=== PATIENT | female | born 1955 | race Asian ===

== ENCOUNTER 2018-05-27 09:07 | Outpatient (CLI) | payer OTHER | END 2018-05-27 20:13 | disposition home or self-care (01) | LOC: CT 09:07 | DX: K59.00 Constipation, unspecified (principal); Z90.5 Acquired absence of kidney ==

== ENCOUNTER 2019-04-30 00:57 | Emergency (ER) | payer OTHER ==
[~2019-04-30] VITALS: Ht 165.1 cm; Wt 79.4 kg
[2019-04-30 02:30] VITALS: BP 174/91; TEMP 98.4
== END 2019-04-30 02:31 | disposition home or self-care (01) ==
LOC: ED 00:57
DX: S33.5XXA Sprain of ligaments of lumbar spine, initial encounter (principal); F43.22 Adjustment disorder with anxiety; X50.9XXA Other and unspecified overexertion or strenuous movements or postures, initial encounter; Y92.89 Other specified places as the place of occurrence of the external cause
CPT/HCPCS: 96372; 99282; J1885

== ENCOUNTER 2019-07-30 19:08 | Emergency (ER) | payer OTHER ==
[~2019-07-30] VITALS: Ht 165.1 cm; Wt 78.0 kg
[2019-07-30 19:35] VITALS: TEMP 98.3
[2019-07-30 21:20] LABS: PLATELET COUNT 285 K/uL (152-353)
[2019-07-30 21:40] LABS: POTASSIUM 3.9 mmol/L (3.6-5.2)
[2019-07-30 22:38] VITALS: BP 169/83
== END 2019-07-30 22:49 | disposition home or self-care (01) ==
LOC: ED 19:08
PROVIDERS: Family Medicine
DX: R10.84 Generalized abdominal pain (principal); K58.9 Irritable bowel syndrome, unspecified; N20.0 Calculus of kidney
CPT/HCPCS: 36415; 80053; 81000; 85027; 99283

== ENCOUNTER 2019-08-03 11:13 | Outpatient (CLI) | payer OTHER | END 2019-08-03 22:22 | disposition home or self-care (01) | LOC: MAMMO 11:13 | DX: Z12.31 Encounter for screening mammogram for malignant neoplasm of breast (principal) ==

== ENCOUNTER 2021-04-24 08:21 | Outpatient (CLI) | payer OTHER | END 2021-04-24 20:02 | disposition home or self-care (01) | LOC: CT 08:21 | PROVIDERS: ATTEND Internal Medicine | DX: R10.30 Lower abdominal pain, unspecified (principal); C64.9 Malignant neoplasm of unspecified kidney, except renal pelvis; N19 Unspecified kidney failure ==

== ENCOUNTER 2021-11-22 10:42 | Outpatient (CLI) | payer OTHER | END 2021-11-22 19:23 | disposition home or self-care (01) | LOC: RAD 10:42 | PROVIDERS: ATTEND Internal Medicine | DX: Z13.820 Encounter for screening for osteoporosis (principal); N95.8 Other specified menopausal and perimenopausal disorders ==

== ENCOUNTER 2022-07-04 08:27 | Outpatient (CLI) | payer OTHER | END 2022-07-04 19:23 | disposition home or self-care (01) | LOC: MRI 08:27 | PROVIDERS: ATTEND Orthopaedic Surgery | DX: M54.59 Other low back pain (principal); M51.37 Other intervertebral disc degeneration, lumbosacral region; M46.1 Sacroiliitis, not elsewhere classified; M48.061 Spinal stenosis, lumbar region without neurogenic claudication ==

== ENCOUNTER 2022-09-27 09:23 | Outpatient (CLI) | payer OTHER | END 2022-09-27 20:15 | disposition home or self-care (01) | LOC: US 09:23 | PROVIDERS: ATTEND Internal Medicine | DX: R35.0 Frequency of micturition (principal); Z85.89 Personal history of malignant neoplasm of other organs and systems; R10.30 Lower abdominal pain, unspecified; N95.1 Menopausal and female climacteric states; E28.39 Other primary ovarian failure; N28.89 Other specified disorders of kidney and ureter; N32.81 Overactive bladder; R10.2 Pelvic and perineal pain; C64.9 Malignant neoplasm of unspecified kidney, except renal pelvis; N19 Unspecified kidney failure; Z08 Encounter for follow-up examination after completed treatment for malignant neoplasm | CPT/HCPCS: 51798 ==

== ENCOUNTER 2023-02-28 08:47 | Outpatient (CLI) | payer OTHER | END 2023-02-28 20:43 | disposition home or self-care (01) | LOC: CT 08:47 | PROVIDERS: ATTEND Internal Medicine | DX: R10.30 Lower abdominal pain, unspecified (principal); N28.89 Other specified disorders of kidney and ureter; R10.2 Pelvic and perineal pain; C64.9 Malignant neoplasm of unspecified kidney, except renal pelvis; N19 Unspecified kidney failure ==